=== PATIENT | female | born 1995 | race Caucasian/White ===

== ENCOUNTER 2019-02-10 22:28 | Outpatient (CLI) | payer MEDICAID, OTHER ==
[~2019-02-10] VITALS: Ht 157.5 cm; Wt 76.3 kg
[2019-02-10 22:46] VITALS: BP 121/77; PULSE 104; RESP 17
== END 2019-02-11 02:05 | disposition home or self-care (01) ==
LOC: OBT 22:28 → L-D 22:29 → OBT 02-11 02:05
PROVIDERS: ATTEND Specialist
DX: O47.1 False labor at or after 37 completed weeks of gestation (principal); O26.893 Other specified pregnancy related conditions, third trimester; M54.5 Low back pain; Z3A.38 38 weeks gestation of pregnancy
CPT/HCPCS: 76815; 76818; 80053; 80307; 81001; Z7500; G0463